=== PATIENT | female | born 2000 | race Caucasian/White ===

== ENCOUNTER 2024-02-21 12:51 | Outpatient (CLI) | payer BC, SELFPAY ==
--- OUTSIDE RECORDS SUMMARY | 2024-02-18 13:25 | XMS_ITS | Continuity of Care Document ---
Author Organization [email or web address] [facility] Address Unknown Encounter 04/27/22 - 04/27/22 [facility] Discharge Disposition: Home Attending Physician: Sherlyn Weinstein Allergies, Adverse Reactions, Alerts Substance Reaction Severity Status amoxicillin hives Active penicillin hives Active Immunizations Given and Recorded Vaccine Date Status Refusal Reason SARS-CoV-2 (COVID-19) mRNA BNT-162b2 vax 03/31/21 Recorded SARS-CoV-2 (COVID-19) mRNA BNT-162b2 vax 07/16/20 Recorded SARS-CoV-2 (COVID-19) mRNA BNT-162b2 vax 06/25/20 Recorded meningococcal conjugate vaccine 05/08/19 Recorded meningococcal conjugate vaccine 04/24/13 Recorded INFLUENZA VIRUS VACCINE 05/08/19 Recorded INFLUENZA VIRUS VACCINE 01/17/14 Recorded INFLUENZA VIRUS VACCINE 01/10/10 Recorded INFLUENZA VIRUS VACCINE 03/15/07 Recorded INFLUENZA VIRUS VACCINE 01/15/05 Recorded INFLUENZA VIRUS VACCINE 01/28/04 Recorded INFLUENZA VIRUS VACCINE 12/31/03 Recorded human papillomavirus vaccine 02/28/15 Recorded human papillomavirus vaccine 08/06/14 Recorded diphtheria/pertussis, acel/tetanus adult 04/24/13 Recorded human papillomavirus vaccine 04/24/13 Recorded influenza virus vaccine, live 12/31/10 Recorded influenza virus vaccine, live 01/27/08 Recorded hepatitis A pediatric vaccine 10/10/10 Recorded hepatitis A pediatric vaccine 01/28/10 Recorded influenza virus vaccine, H1N1, inactivat 03/11/09 Recorded influenza virus vaccine, H1N1, live 01/17/09 Recor ded varicella virus vaccine 11/17/06 Recorded varicella virus vaccine 04/18/02 Recorded poliovirus vaccine, inactivated 01/18/06 Recorded poliovirus vaccine, inactivated 01 Recorded poliovirus vaccine, inactivated 01 Recorded poliovirus vaccine, inactivated 01 Recorded measles/mumps/rubella virus vaccine 01/18/06 Recor ded measles/mumps/rubella virus vaccine 04/18/02 Recor ded diphtheria/pertussis, acel/tetanus ped 01/18/06 Re corded diphtheria/pertussis, acel/tetanus ped 04/18/02 Re corded diphtheria/pertussis, acel/tetanus ped 01 Re corded diphtheria/pertussis, acel/tetanus ped 01 Re corded diphtheria/pertussis, acel/tetanus ped 01 Re corded pneumococcal 7-valent vaccine 10/25/02 Recorded pneumococcal 7-valent vaccine 01 Recorded pneumococcal 7-valent vaccine 01 Recorded pneumococcal 7-valent vaccine 01 Recorded haemophilus b conjugate (PRP-T) vaccine 04/18/02 R ecorded haemophilus b conjugate (PRP-T) vaccine 01 R ecorded haemophilus b conjugate (PRP-T) vaccine 01 R ecorded hepatitis B pediatric vaccine 01/02/02 Recorded hepatitis B pediatric vaccine 01 Recorded hepatitis B pediatric vaccine 01 Recorded haemophilus b conjugate (HbOC) vaccine 01 Re corded Medications Annovera 0.15 mg-0.013 mg/24 hours vaginal ring Refill(s) 0 Start Date: 07/11/21 Status: Ordered Gianvi oral tablet 1 tab, orally, 1 time a day, Refill(s) 0 Start Date: 11/30/19 Status: Ordered Problem List No Known Problems Social History Social History Type Response Smoking Status Never (less than 100 in lifetime);Never; Tobacco Screening/Education Patient was screened for tobacco use and is a nonuser. entered on: 07/11/21 Sex Female Patient Care team information Care Team Personnel Name: Bernice Navarrete D. Position: HAND II THERMAL CUTTER Member Role: Tamraner Support Name: Sebastian Grimaldo MD Position: Physician - Primary Care Member Role: Responsible Provider Address: Address: [address] [place] [address]- Care Team Related Persons Name: MOISES MORGAN
--- OUTSIDE RECORDS SUMMARY | 2024-02-18 13:25 | XMS_ITS | Continuity of Care Document ---
Author Organization [employer] [facility] es Address Unknown Care Team Providers Care Print Journalist Name Role Phone Sherlyn Weinstein Primary Care Physician Encounter 09/07/22 - 09/07/22 [facility] Discharge Disposition: Home Attending Physician: Lynn Farmer Allergies, Adverse Reactions, Alerts Substance Reaction Severity [...] screened for tobacco use and is a nonuser.; Smoking in Household No entered on: 05/25/22 Sex Female Patient Care team information Care Team Personnel Name: Sherlyn Weinstein Position: Physician - Primary Care Member Role: Primary Care Physician Address: Address: [address] [place] [address]- Name: Bernice Navarrete Pharm D. Position: TRIAL MANAGEMENT ASSOCIATE Member Role: Tamraner Support Name: DORYS WU Position: Physician - Urgent Care Member Role: Responsible Provider Address: Address: [address] [place] [address]- Care Team Related Persons Name: MOISES MORGAN
--- OUTSIDE RECORDS SUMMARY | 2024-02-18 13:25 | XMS_ITS | Continuity of Care Document ---
Author Organization [employer] [facility] Address Unknown Care Team Providers Care Supervisor [employer] Name Role Phone Sherlyn Weinstein Primary Care Physician Encounter [facility] Date(s): 10/29/23 - 10/29/23 [employer] [facility] Encounter Diagnosis Acute left-sided back pain(Discharge Diagnosis) - 10/29/23 Cough(Discharge Diagnosis) - 10/29/23 Discharge Disposition: Home Attending Physician: Sherlyn Leos Admitting Physician: Sherlyn Leos Referring Physician: Gee River PA-C Allergies, Adverse Reactions, Alerts Substance Reaction Severity Status amoxicillin hives Active penicillin hives Active Assessment and Plan Extracted from: Title:Urgent Care Note Author:Ursula Leos Date:10/29/23 1. Acute left-sided back pain Ordered: diclofenac, 75 MG = 1 tab, orally, 2 times a day, # 14 tab, Refill(s) 0, with food, Pharmacy: [facility] #[id number], Diagnosis: Acute left-sided back pain, 66.1, 10/29/23 8:49:00 CDT, Weight, kg 2. Cough Patient's physical exam and vital signs are overall very reassuring. PERC criteria are negative making PE very unlikely. We discussed that she likely has a strain or sprain of her back or ribs from the 2 to 3 weeks of coughing that she has been doing. I did offer a chest x-ray to further evaluate for potential lung etiology such as pneumonia, pneumothorax, pleural effusion, etc.. Patient declined at this time which is reasonable as she does not have signs or symptoms consistent with this necessarily. We discussed treating with some anti-inflammatories and she would like to trial stronger NSAIDs rather than prednisone which is reasonable. Can begin diclofenac 75 mg every 12 hours. Take with food avoid GI upset. Avoid other NSAIDs while taking this. Can additionally take Tylenol 1000 mg every 8 hours. Recommended ice, heat, gentle stretching and active range of motion. Can use a massage with a tennis ball. Return for reevaluation if symptoms persist or worsen, or if you develop any new symptoms. Patient is agreeable to the plan and all questions and concerns are addressed prior to discharge. Functional Status 10/29/23 ADLs (func) Independent Disabilities (func) None Immunizations Given and Recorded Vaccine Date Status [...] Refill(s) 0 Start Date: 07/11/21 Status: Ordered diclofenac sodium 75 mg oral enteric coated tablet 75 MG = 1 tab, orally, 2 times a day, # 14 tab, Refill(s) 0, with food, Pharmacy: [facility] #[id number], Diagnosis: Acute left-sided back pain, 66.1, 10/29/23 8:49:00 CDT, Weight, kg Start Date: 10/29/23 Stop Date: 11/05/23 Status: Ordered Gianvi oral tablet 1 tab, orally, 1 time a day, Refill(s) 0 Start Date: 11/30/19 Status: Ordered Misc Medication Refill(s) 0 Start Date: 10/29/23 Status: Ordered Mental Status 10/29/23 Able to Report correct day of the week C orrect Able to Report correct month Accurate wi thin 5 days Able to Report correct year Correct Problem List Condition Confirmation Course Effective Dates Status H ealth Status Informant Nicotine dependence, other tobacco product, uncomplicated Confirmed Active Diagnosis Diagnosis Type Effective Dates Health Status Cl inical Service Informant Acute left-sided back pain Discharge Diagnosis 10/29/23 Non-Specified Cough Discharge Diagnosis 10/29/23 Vital Signs Most recent to oldest [Reference Range]: 1 Blood Pressure [100-139/50-89 mmHg] 113/ 73mmHg (10/29/23 8:49 AM) Respiratory Rate [12-20 br/min] 16 br/mi n (10/29/23 8:49 AM) Temperature Oral [96-100 DegF] 98.3 DegF (10/29/23 8:49 AM) Pulse Rate [55-100 bpm] 65 bpm (10/29/23 8:49 AM) Oxygen Saturation [94-100 %] 99 % (10/29/23 8:49 AM) Weight 66.1 kg (10/29/23 8:49 AM) Do you have these Coronavirus symptoms? Cough (10/29/23 8:49 AM) Social History Social History Type Response Smoking Status Never (less than 100 in lifetime);Never; Tobacco Screening/Education Patient was screened for tobacco use and educated on tobacco entered on: 10/29/23 Sex Female Physician Emergency department Note * Sherlyn Leos PA: PERFORM Event Display: ED/Urgent Care Note Authored Date: [id number] Chief Complaint Cough (2 weeks) and left upper back pain itinally with cough, but now constant. . History of Present Illness -Provider Patient is a 23-year-old female who presents to urgent care today with concerns of posterior back/shoulder pain??for the past few days. ??She states she has had a cough??for??the last 2 to 3 weeks and??had chest congestion with that. ??The cough is continued improve??and??a few days ago she starteddeveloping some pain in her??left??upper back just under her shoulder blade only when coughing??but now feels that the pain is constant. ??Severity worsens when she coughs or takes a deep breath, andwith??movement or position changes. ??Pain is sharp in nature??and is shooting at times. Doesn't feel that she has shortness of breath necessarily but feels like she cannot get a deep breath due to the pain. ??No fevers, chills, palpitations, center chest pain or pressure, hemoptysis, urinary symptoms.?? Denies any recent surgery or immobilization, estrogen hormone use, history??of cancer or blood clots, lower extremity pain or edema. ??She has tried some ibuprofen without much relief. Problem List/Past Medical History Ongoing Nicotine dependence, other tobacco product, uncomplicated Historical No qualifying data Procedure/Surgical History No procedures found. ?? Allergies amoxicillin??(hives) penicillin??(hives) Medications Medications Home Annovera 0.15 mg-0.013 mg/24 hours vaginal ring,?Not taking diclofenac sodium 75 mg oral enteric coated tablet, 75 MG, 1 tab, orally, 2 times a day, with food Gianvi oral tablet, 1 tab, orally, 1 time a day,?Not taking Misc Medication Social History Alcohol None, Alcohol use interferes with work or home: No. Electronic Cigarettes/Vaping E-Cigarette Use: 51+ inhales/day. Type: Nicotine infused. Vaping Education: Patient was educated onharms of vaping today and is not ready for change. E-Cigarette Use: Never. Vaping Education: Patient was screened for vaping use and is a nonuser. Passive Exposure: No. Employment/School Employed, Student, Work/School description: [employer], work's for [employer]. Highest education level: Some college. Exercise Home/Environment Lives with 1 room mate. Single Nutrition/Health Regular, Caffeine intake amount: 3 cups coffee daily. Sexual Sexually active: No. Number of lifetime partners 2. What is your current gender identity? (Check all that apply) Identifies as female. Substance Use/Abuse None Tobacco Never (less than 100 in lifetime) Tobacco Use (Smoking):. Smokeless Tobacco Use: Never. Tobacco Screening/Education Patient was screened for tobacco use and educated on tobacco cessation today and isnot ready for change.. Never (less than 100 in lifetime) Tobacco Use (Smoking):. Smokeless Tobacco Use: Never. Tobacco Screening/Education Patient was screened for tobacco use and is a nonuser.. Household tobacco concerns:No. Family History Hypertrophic cardiomyopathy: Father. Review of Systems Negative except HPI Physical Exams Vitals & Measurements Vital Signs and Measurements VITAL SIGNS: Systolic Blood Pressure: 113 mmHg Diastolic Blood Pressure: 73 mmHg Pulse Rate: 65 bpm Respiratory Rate: 16 br/min Temperature Oral: 98.3 DegF Oxygen Saturation: 99 % MEASUREMENTS: Weight: 66.1 kg General: Well appearing, 23-year-old female in no acute distress?? Head: Normocephalic, atraumatic. Neck: Supple. ??Absent cervical lymphadenopathy.?Full range of motion without pain. Eyes: Conjunctiva clear. No discharge. Mouth/Throat: Oral mucosa moist. No pharyngeal erythema or exudates. No tonsillar hypertrophy. Uvula midline. Respiratory: Chest expansion symmetric. Respirations are easy and unlabored. Lungs are clear to auscultation bilaterally. No wheezes, rales or rhonchi. Cardiovascular: Regular rate and rhythm.?? MSK:??No tenderness to palpation over left??upper middle back.?? Feels that it is deeper. Skin: No visible rashes. Warm and dry. Labs 1 day Lab results for today?? No qualifying data available. Diagnostics Radiology orders for today?? No qualifying data available. ?? Radiology Results Current Encounter?? No qualifying data available. Assessment/Plan 1.??Acute left-sided back pain Ordered: diclofenac, 75 MG = 1 tab, orally, 2 times a day, # 14 tab, Refill(s) 0, with food, Pharmacy: [facility] #[id number], Diagnosis: Acute left-sided back pain, 66.1, 10/29/23 8:49:00 CDT, Weight, kg ?? 2.??Cough ?? Patient's physical exam and vital signs are overall very reassuring.?PERC criteria are negative making PE very unlikely.?? We??discussed that she likely has a??strain or sprain of her??back??or ribs??from the 2 to 3 weeks of coughing that she has been doing.?? I did offer a chest x-ray to further evaluate for potential??lung etiology such as pneumonia, pneumothorax, pleural effusion, etc.. ??Patient declined at this time which is reasonable as she does not have signs or symptoms consistent with this necessarily.?? We discussed treating with some anti-inflammatories and she would like to trial??stronger NSAIDs rather than prednisone which is reasonable.?? Can begin diclofenac 75 mg every 12 hours. ??Take with food avoid GI upset. ??Avoid other NSAIDs while taking this.?? Can additionally take Tylenol 1000 mg every 8 hours.?? Recommended ice, heat, gentle stretching and active range ofmotion. ??Can use a massage with a tennis ball. ?? Return for reevaluation if symptoms persist or worsen, or if you develop any new symptoms. ??Patient is agreeable to the plan and all questions and concerns are addressed prior to discharge. Follow Up As needed. ?? Note: Portions of the record and this note have been created with [employer] voice recognition software. Occasionally wrong-word or [id number] substitutions may have occurred due to the inherent limitation of voice recognition software. The text is reviewed by myself, the physician events and promotions assistant, priorto signing, but occasionally errors may still occur and should be interpreted within the context ofa physician events and promotions assistant encounter by a nurse practitioner/physician events and promotions assistant/physician. Patient Care team information Care Team Personnel Name: Gee River PA-C Position: Physician - Urgent Care Member Role: Responsible Provider Address: Address: [address] Name: Sherlyn Weinstein Position: Physician - Primary Care Member Role: Primary Care Physician Address: Address: [address] Name: Bernice Navarrete D. Position: HUMAN PERFORMANCE PROFESSOR Member Role: Cerner Support Name: Sherlyn Leos Position: Physician - Urgent Care Member Role: Attending Physician Address: Address: [address] Name: Peg Mcclure Position: UC Nursing Member Role: RN Care Team Related Persons Name: MOISES MORGAN Address: home [id number] [place] [phone]
--- OUTSIDE RECORDS SUMMARY | 2024-02-18 13:25 | XMS_ITS | Continuity of Care Document ---
Author Organization [employer] [facility] es Address Unknown Encounter 06/13/21 - 06/13/21 General Blood [facility] Encounter Diagnosis Encounter for screening laboratory testing for COVID-19 virus(Discharge Diagnosis) - 06/13/21 Discharge Disposition: Home Attending Physician: Karen Hart NP Admitting Physician: Karen Hart NP Referring Physician: Karen Hart NP Allergies, Adverse Reactions, Alerts Substance Reaction Severity Status amoxicillin hives Active penicillin hives Active Immunizations Given and Recorded Vaccine Date Status Refusal Reason meningococcal conjugate vaccine 05/08/19 Recorded meningococcal conjugate [...] conjugate (HbOC) vaccine 01 Re corded Medications Gianvi oral tablet 1 tab, orally, 1 time a day, Refill(s) 0 Start Date: 11/30/19 Status: Ordered Problem List No Chronic Problems Diagnosis Diagnosis Type Effective Dates Health Status Clinical Service Informant Encounter for screening laboratory testing for COVID-19 virus Discharge Diagnosis 06/13/21 Non-Specified Results Laboratory List Name Date COVID PCR WH 06/13/21 Most recent to oldest [Reference Range]: 1 First Test No *NA* (06/13/21 11:06 AM) Employed in healthcare No *NA* (06/13/21 11:06 AM) Symptomatic as defined by CDC Yes *NA* (06/13/21 11:06 AM) Hospitalized No *NA* (06/13/21 11:06 AM) ICU No *NA* (06/13/21 11:06 AM) Resides in congregate care setting Yes *NA* (06/13/21 11:06 AM) ? Not *NA* (06/13/21 11:06 AM) Patient Race White *NA* (06/13/21 11:06 AM) Patient Ethnicity Not *NA* (06/13/21 11:06 AM) SARCoV2 COVID POSITIVE *ABN* (06/13/21 11:06 AM) SARCoV2 IC Valid (06/13/21 11:06 AM) SARCov2 interp SARS-CoV-2 Detected *NA* (06/13/21 11:06 AM) Specimen type COVID Nasal *NA* (06/13/21 11:06 AM) Social History Social History Type Response Smoking Status Never (less than 100 in lifetime); Smoking in Household No; Interest in Smoking Cessation Class No; Pt received Fernie Smoking Cessation [employer] No entered on: 12/08/19 Sex Female
--- OUTSIDE RECORDS SUMMARY | 2024-02-18 13:25 | XMS_ITS | Continuity of Care Document ---
Author Organization [employer] [facility] Address [address] [place] [address] Encounter 05/21/20 - 05/21/20 [facility] [address] [place], [place] [address] [id number] Encounter Diagnosis Conjunctivitis, right eye(Discharge Diagnosis) - 05/21/20 Discharge Disposition: Home Attending Physician: Jennifer Rodriguez Admitting Physician: Jennifer Rodriguez Referring Physician: Jennifer Rodriguez Allergies, Adverse Reactions, Alerts Substance Reaction Severity Status amoxicillin hives Active penicillin hives Active Assessment and Plan Extracted from: Title:Clinic Visit Author:Jennifer Rodriguez Date:05/21/20 1. Conjunctivitis, right eye Due to the patient's lack of viral symptoms elsewhere I will treat her for bacterial conjunctivitis at this time. She was recommended to apply warm compresses several times a day. She was given polymyxin t rimethoprim drops, 1 drop to the right eye every 3 hours for 7 days. If she develops any vision changes she should be evaluated by ophthalmology. Orders: polymyxin B-trimethoprim ophthalmic, 1 Drops, eye(s)-affected, every 3 hours, X 7 Days, # 10 ML, Refill(s) 0, Soln, Pharmacy: [facility] [id number] [facility], 05/21/20 8:48:00 CDT, Height, cm, 60.4, 05/21/20 8:48:00 CDT, Weight, kg, 163 Functional Status 05/21/20 ADLs (func) Independent Disabilities (func) None Immunizations Given and Recorded Vaccine Date Status Refusal Reason INFLUENZA VIRUS VACCINE 05/08/19 Recorded INFLUENZA VIRUS VACCINE 01/17/14 Recorded INFLUENZA VIRUS VACCINE 01/10/10 Recorded INFLUENZA VIRUS VACCINE 03/15/07 Recorded INFLUENZA VIRUS VACCINE 01/15/05 Recorded INFLUENZA VIRUS VACCINE 01/28/04 Recorded INFLUENZA VIRUS VACCINE 12/31/03 Recorded meningococcal conjugate vaccine 05/08/19 Recorded meningococcal conjugate vaccine 04/24/13 Recorded human papillomavirus vaccine 02/28/15 Recorded human papillomavirus vaccine 08/06/14 Recorded human papillomavirus vaccine 04/24/13 Recorded diphtheria/pertussis, acel/tetanus adult 04/24/13 Recorded influenza virus vaccine, live 12/31/10 [...] conjugate (HbOC) vaccine 01 Re corded Medications polymyxin B-trimethoprim ophthalmic 76938 u-1 mg/ml solution 1 Drops, eye(s)-affected, every 3 hours, X 7 Days, # 10 ML, Refill(s) 0, Maribel, Pharmacy: [facility] [id number] [facility], 05/21/20 8:48:00 CDT, Height, cm, 60.4, 05/21/20 8:48:00 CDT, Weight, kg, 163 Start Date: 05/21/20 Stop Date: 05/28/20 Status: Ordered Mental Status 05/21/20 Able to Report correct day of the week C orrect Able to Report correct month Accurate wi thin 5 days Able to Report correct year Correct Problem List No Known Problems Vital Signs Most recent to oldest [Reference Range]: 1 Blood Pressure [100-150/50-95 mmHg] 134/ 73mmHg (05/21/20 8:48 AM) BP Site Right upper arm (05/21/20 8:48 AM) BP Cuff Size Regular cuff (05/21/20 8:48 AM) Temperature Oral [96-100 DegF] 98.7 DegF (05/21/20 8:48 AM) Pulse Rate [55-100 bpm] 66 bpm (05/21/20 8:48 AM) Pulse Site Brachial (05/21/20 8:48 AM) Oxygen Saturation [94-100 %] 98 % (05/21/20 8:48 AM) Height 163 cm (05/21/20 8:48 AM) Weight 60.4 kg (05/21/20 8:48 AM) Do you have these Coronavirus symptoms? None (05/21/20 8:48 AM) Close contact w lab confirm Coronavirus No (05/21/20 8:48 AM) Have you traveled to Coronavirus area No (05/21/20 8:48 AM) Social History Social History Type Response Smoking Status Never (less than 100 in lifetime); Smoking in Household No; Interest in Smoking Cessation Class No; Pt received Fernie Smoking Cessation [facility] Ed No entered on: 12/08/19 Sex Female
--- OUTSIDE RECORDS SUMMARY | 2024-02-18 13:25 | XMS_ITS | Continuity of Care Document ---
Author Organization [facility] es Address Unknown Care Team Providers Care Director Alumni Relations Name Role Phone Sherlyn Weinstein Primary Care Physician Encounter 05/25/22 - 05/25/22 [facility] Discharge Disposition: Home Attending Physician: DORYS WU Admitting Physician: DORYS WU Referring Physician: DORYS WU Allergies, Adverse Reactions, Alerts Substance Reaction Severity Status amoxicillin hives Active penicillin hives Active Functional Status 05/25/22 ADLs (func) Independent Disabilities (func) None Immunizations [...] Refill(s) 0 Start Date: 11/30/19 Status: Ordered Mental Status 05/25/22 Able to Report correct day of the week C orrect Able to Report correct month Accurate wi thin 5 days Able to Report correct year Correct Problem List No Chronic Problems Diagnosis Diagnosis Type Effective Dates Health Status Cl inical Service Informant Pain in throat Billing Diagnosis 05/25/22 Non-Specified Results Laboratory List Name Date Strep A Detection Nucleic Acid PCR (Stre p A PCR) 05/25/22 Most recent to oldest [Reference Range]: 1 Strep A PCR [Strep A Not Detected] Strep A Not Detected (05/25/22 10:02 AM) Vital Signs Most recent to oldest [Reference Range]: 1 Blood Pressure [100-150/50-95 mmHg] 120/ 76mmHg (05/25/22 9:53 AM) Respiratory Rate [12-20 br/min] 16 br/mi n (05/25/22 9:53 AM) Temperature Oral [96-100 DegF] 98.3 DegF (05/25/22 9:53 AM) Pulse Rate [55-100 bpm] 68 bpm (05/25/22 9:53 AM) Oxygen Saturation [94-100 %] 98 % (05/25/22 9:53 AM) Do you have these Coronavirus symptoms? Sore throat (05/25/22 9:53 AM) Where have you traveled? No (05/25/22 9:53 AM) Social History Social History Type Response Smoking Status Never (less than 100 in lifetime);Never; Tobacco Screening/Education Patient was screened for tobacco use and is a nonuser.; Smoking in Household No entered on: 05/25/22 Sex Female Patient Care team information Care Team Personnel Name: Sherlyn Weinstein Position: Physician - Primary Care Member Role: Primary Care Physician Address: Address: [address] [place] [address]- Name: Bernice Navarrete Pharm D. Position: REPRODUCTION ORDER PROCESSOR Member Role: Tamraner Support Name: DORYS WU Position: Physician - Urgent Care Member Role: Responsible Provider Address: Address: [address] [place] [address]- Name: Elsie Epps RN Urgent Care Position: UC Nursing Member Role: RN Care Team Related Persons Name: MOISES MORGAN
--- OUTSIDE RECORDS SUMMARY | 2024-02-18 13:25 | XMS_ITS | Continuity of Care Document ---
Author Organization [employer] Address [address] [place] [address] Encounter 02/06/20 - 02/06/20 [facility] [employer] [facility] [address] [place] [address] Discharge Disposition: Home Attending Physician: Marisa Barrett NP Admitting Physician: Marisa Barrett NP Referring Physician: Marisa Barrett NP Allergies, Adverse Reactions, Alerts Substance Reaction Severity Status amoxicillin hives Active penicillin hives Active Problem List No Known Problems Results Laboratory List Name Date SARS Coronavirus 2 RNA Detection, V (COV ID PCR MML) 02/06/20 Most recent to oldest [Reference Range]: 1 First Test No (02/06/20 12:42 PM) Employed in healthcare No (02/06/20 12:42 PM) Symptomatic as defined by CDC No (02/06/20 12:42 PM) Hospitalized No (02/06/20 12:42 PM) ICU No (02/06/20 12:42 PM) Resides in congregate care setting No (02/06/20 12:42 PM) ? Not (02/06/20 12:42 PM) Patient Race Unknown (02/06/20 12:42 PM) Patient Ethnicity Unknown (02/06/20 12:42 PM) Social History Social History Type Response Smoking Status Never (less than 100 in lifetime); Smoking in Household No; Interest in Smoking Cessation Class No; Pt received Fernie Smoking Cessation [facility] Ed No entered on: 12/08/19 Sex Female
--- OUTSIDE RECORDS SUMMARY | 2024-02-18 13:25 | XMS_ITS | Continuity of Care Document ---
Author Organization [facility] Address [address] [address] En[facility] 11/30/19 - [facility] [address] [place] [address] Encounter Diagnosis Acute sore throat(Discharge Diagnosis) - 11/30/19 Discharge Disposition: Home Attending Physician: Antonio Cotton MD Admitting Physician: Antonio Cotton MD Referring Physician: Antonio Cotton MD Allergies, Adverse Reactions, Alerts Substance Reaction Severity Status amoxicillin hives Active penicillin hives Active Functional Status 11/30/19 ADLs (func) Independent Disabilities (func) None Medications Gianvi oral tablet 1 tab, orally, 1 time a day, Refill(s) 0 Start Date: 11/30/19 Status: Ordered Mental Status 11/30/19 Able to Report correct day of the week C orrect Able to Report correct month Accurate wi thin 5 days Able to Report correct year Correct Results Laboratory List Name Date Strep A Detection Nucleic Acid PCR (Stre p A PCR) 11/30/19 Most recent to oldest [Reference Range]: 1 Strep A PCR [Strep A Not Detected] Strep A Not Detected (11/30/19 2:02 PM) Vital Signs Most recent to oldest [Reference Range]: 1 Blood Pressure [100-150/50-95 mmHg] 131/ 74mmHg (11/30/19 1:54 PM) Respiratory Rate [12-20 br/min] 15 br/mi n (11/30/19 1:54 PM) Temperature Oral [96-100 DegF] 99.0 DegF (11/30/19 1:54 PM) Pulse Rate [55-100 bpm] 81 bpm (11/30/19 1:54 PM) Oxygen Saturation [94-100 %] 99 % (11/30/19 1:54 PM) Height 159 cm (11/30/19 1:54 PM) Weight 59 kg (11/30/19 1:54 PM) Do you have these Coronavirus symptoms? Sore throat (11/30/19 1:54 PM) Close contact w lab confirm Coronavirus No (11/30/19 1:54 PM) Have you traveled to Coronavirus area No (11/30/19 1:54 PM) Social History Social History Type Response Smoking Status Never (less than 100 in lifetime); Smoking in Household No; Interest in Smoking Cessation Class No; Pt received Fernie Smoking Cessation [facility] No entered on: 11/30/19 Sex Female
--- OUTSIDE RECORDS SUMMARY | 2024-02-18 13:25 | XMS_ITS | Continuity of Care Document ---
Author Organization [facility] Address [address] [place] [phone] Encounter 05/03/20 - 05/03/20 [facility] [address] [place] [phone] Encounter Diagnosis Acute lower urinary tract infection(Discharge Diagnosis) - 05/03/20 Discharge Disposition: Home Attending Physician: Jie Dent DO Admitting Physician: Jie Dent DO Referring Physician: Jie Dent DO Allergies, Adverse Reactions, Alerts Substance Reaction Severity Status amoxicillin hives Active penicillin hives Active Assessment and Plan Extracted from: Title:Clinic Visit Author:Jie Dent Date:05/03/20 Acute lower urinary tract infection Unfortunately urinalysis was affected by the Azo. We will treat the patient empirically with nitrofurantoin twice daily for 5 days, patient is to take this with food. She was counseled that this can interfere with control and so if she is sexually active she should be taking an alternative form of control during the time that she is on the antibiotic. If her symptoms do not resolve with this antibiotic, suggest that she return for a new sample of urine so we can do a urine culture. Recommended plenty of fluid hydration, recommended rest, ibuprofen or Tylenol as needed for pain. Ordered: nitrofurantoin, 100 MG = 1 CAP, orally, 2 times a day, X 5 Days, # 10 CAP, Refill(s) 0, with food, Pharmacy: [facility] [id number] [facility] [place], Diagnosis: Acute lower urinary tract infection, 163, 05/03/20 11:01:00 [employer], Height, cm, 60.9, 05/03/20 11:01:00 [employer], Weight, kg Functional Status 05/03/20 ADLs (func) Independent Disabilities (func) None Immunizations [...] conjugate (HbOC) vaccine 01 Re corded Medications Macrobid macrocrystals-monohydrate 100 mg oral capsule 100 MG = 1 CAP, orally, 2 times a day, X 5 Days, # 10 CAP, Refill(s) 0, with food, Pharmacy: [facility] [id number] [address] [employer], Diagnosis: Acute lower urinary tract infection, 163, 05/03/20 11:01:00 [employer], Height, cm, 60.9, 05/03/20 11:01:00 [employer], Weight, kg Start Date: 05/03/20 Stop Date: 05/08/20 Status: Ordered Mental Status 05/03/20 Able to Report correct day of the week C orrect Able to Report correct month Accurate wi thin 5 days Able to Report correct year Correct Problem List No Known Problems Results Laboratory List Name Date Urinalysis/Culture Reflex iQ (UA/Cult Rf x iQ) 05/03/20 Most recent to oldest [Reference Range]: 1 iQ Color [Light-[place]] [place] *ABN* (05/03/20 10:45 AM) iQ Bilirubin SEE COMMENT 1 *NA* (05/03/20 10:45 AM) iQ Bacteria [2+] Occasional (05/03/20 10:45 AM) iQ Culture Criteria? Not Met (05/03/20 10:45 AM) iQ Mucous [Prominent /LPF] Prominent /LP F (05/03/20 10:45 AM) iQ Leukocytes SEE COMMENT 2 *NA* (05/03/20 10:45 AM) iQ Clarity [Clear] Turbid *ABN* (05/03/20 10:45 AM) iQ Specific [place] [1.005 - 1.030] >1.0 30 *ABN* (05/03/20 10:45 AM) iQ Ketones SEE COMMENT 3 *NA* (05/03/20 10:45 AM) iQ Glucose SEE COMMENT 4 *NA* (05/03/20 10:45 AM) iQ Urobilinogen [Normal] 3 *ABN* (05/03/20 10:45 AM) iQ RBC [0 - 2] >100 *ABN* (05/03/20 10:45 AM) iQ Protein SEE COMMENT 5 *NA* (05/03/20 10:45 AM) iQ Blood SEE COMMENT 6 *NA* (05/03/20 10:45 AM) iQ Nitrite SEE COMMENT 7 *NA* (05/03/20 10:45 AM) iQ WBC [0 - 2] >100 *ABN* (05/03/20 10:45 AM) iQ WBC Clumps [None Seen] Present (05/03/20 10:45 AM) iQ SQ Epithelial [0 - 5] >10 8 *ABN* (05/03/20 10:45 AM) iQ pH [5.0-8.0] SEE COMMENT 9 *NA* (05/03/20 10:45 AM) Specimen Type Ur Clean Catch (05/03/20 10:45 AM) 1Result Comment: 'Highly colored urine unable to test.' 2Result Comment: 'Highly colored urine unable to test.' 3Result Comment: 'Highly colored urine unable to test.' 4Result Comment: 'Highly colored urine unable to test.' 5Result Comment: 'Highly colored urine unable to test.' 6Result Comment: 'Highly colored urine unable to test.' 7Result Comment: 'Highly colored urine unable to test.' 8Result Comment: Presence of Moderate to Many Squamous Epithelial cells suggests contamination. No reflex culture performed. Recollect urine sample by clean catch midstream or catheterization method, if culture is needed. 9Result Comment: 'Highly colored urine unable to test.' Vital Signs Most recent to oldest [Reference Range]: 1 Blood Pressure [100-150/50-95 mmHg] 132/ 89mmHg (05/03/20 11:01 AM) BP Site Right upper arm (05/03/20 11:01 AM) BP Cuff Size Regular cuff (05/03/20 11:01 AM) Temperature Tympanic [96-99 DegF] 98.7 D egF (05/03/20 11:01 AM) Pulse Rate [55-100 bpm] 79 bpm (05/03/20 11:01 AM) Height 163 cm (05/03/20 11:01 AM) Weight 60.9 kg (05/03/20 11:01 AM) Do you have these Coronavirus symptoms? None (05/03/20 11:01 AM) Close contact w lab confirm Coronavirus No (05/03/20 11:01 AM) Have you traveled to Coronavirus area No (05/03/20 11:01 AM) Social History Social History Type Response Smoking Status Never (less than 100 in lifetime); Smoking in Household No; Interest in Smoking Cessation Class No; Pt received Fernie Smoking Cessation [facility] Ed No entered on: 12/08/19 Sex Female
--- OUTSIDE RECORDS SUMMARY | 2024-02-18 13:25 | XMS_ITS | Continuity of Care Document ---
Author Organization [employer] [facility] es Address [address] [place] [address] Encounter 02/11/21 - 02/11/21 [facility] [address] [address] Discharge Disposition: Home Attending Physician: Marisa Barrett [...] Dates Health Status Cl inical Service Informant Contact with and (suspected) exposure to COVID-19 02/11/21 Non-Specified Results Laboratory List Name Date COVID PCR WH 02/11/21 Most recent to oldest [Reference Range]: 1 First Test No *NA* (02/11/21 11:44 AM) Employed in healthcare No *NA* (02/11/21 11:44 AM) Symptomatic as defined by CDC Yes *NA* (02/11/21 11:44 AM) Date of onset 11-FEB-2021 *NA* (02/11/21 11:44 AM) Hospitalized No *NA* (02/11/21 11:44 AM) ICU No *NA* (02/11/21 11:44 AM) Resides in congregate care setting No *NA* (02/11/21 11:44 AM) ? Not *NA* (02/11/21 11:44 AM) Patient Race White *NA* (02/11/21 11:44 AM) Patient Ethnicity Not *NA* (02/11/21 11:44 AM) SARCoV2 COVID Negative (02/11/21 11:44 AM) SARCoV2 IC Valid (02/11/21 11:44 AM) SARCov2 interp SARS-CoV-2 not detec oleg. (02/11/21 11:44 AM) Specimen type COVID Nasal *NA* (02/11/21 11:44 AM) Social History Social History Type Response Smoking Status Never (less than 100 in lifetime); Smoking in Household No; Interest in Smoking Cessation Class No; Pt received Fernie Smoking Cessation [facility] Ed No entered on: 12/08/19 Sex Female
--- OUTSIDE RECORDS SUMMARY | 2024-02-18 13:25 | XMS_ITS | Continuity of Care Document ---
Author Organization [facility] es Address Unknown Care Team Providers Care Steam Blocker Name Role Phone Sherlyn Weinstein Primary Care Physician Encounter 05/07/22 - 05/07/22 [facility] Discharge Disposition: Home Attending Physician: Iona Alvarez NP Admitting Physician: Iona Alvarez NP Referring Physician: Iona Alvarez NP Allergies, Adverse Reactions, Alerts Substance Reaction Severity Status amoxicillin hives Active penicillin hives Active Assessment and Plan Extracted from: Title:Results Callback Author:Wilton Benoit D Date:05/07/22 Chlamydia trachomatis - - Neg Chlamydia DNA 05/07/2022 12:58 Neisseria gonorrhoeae - - Neg GC DNA 05/07/2022 12:58 05/07/2022 17:17 (Wilton Benoit Pharm D) No further action required CT and NG were negative Extracted from: Title:Urgent Care Note Author:Iona Alvarez NP D ate:05/07/22 Dysuria -UA showed some findings that could be consistent with a urinary tract infection to include leukocyte esterase, blood, and turbid appearance. Unfortunately, her urine sample was too small to be able to send for a culture. She said that she was doing well during the Macrobid and for a few days afterward; however, same symptoms came back about 1 to 2 days ago. I will choose a more broad-spectrum antibiotic for treatment. Cipro 250mg every 12 hours x 3 days. No signs or symptoms of pyelonephritis. -Given her symptoms, we also opted to do also do a urine test for chlamydia/gonorrhea. These results are pending at the time of discharge. Ordered: Chlamydia/gonorrhoeae PCR Orders: ciprofloxacin, 250 MG = 1 tab, orally, every 12 hours, X 3 Days, # 6 tab, Refill(s) 0, Pharmacy: [facility] [id number] [address], 163, 05/21/20 8:48:00 CDT, Height, cm, 64.3, 07/11/21 11:19:00 CDT, Weight, kg Functional Status 05/07/22 ADLs (func) Independent Disabilities (func) None Immunizations [...] Refill(s) 0 Start Date: 07/11/21 Status: Ordered ciprofloxacin 250 mg oral tablet 250 MG = 1 tab, orally, every 12 hours, X 3 Days, # 6 tab, Refill(s) 0, Pharmacy: [facility] [id number] [address] [employer], 163, 05/21/20 8:48:00 CDT, Height, cm, 64.3, 07/11/21 11:19:00 CDT, Weight, kg Start Date: 05/07/22 Stop Date: 05/10/22 Status: Ordered Gianvi oral tablet 1 tab, orally, 1 time a day, Refill(s) 0 Start Date: 11/30/19 Status: Ordered Mental Status 05/07/22 Able to Report correct day of the week C orrect Able to Report correct month Accurate wi thin 5 days Able to Report correct year Correct Problem List No Chronic Problems Diagnosis Diagnosis Type Effective Dates Health Status Clini jabier Service Informant Dysuria Billing Diagnosis 05/07/22 Non-Specifie d Results Laboratory List Name Date Chlamydia/gonorrhoeae PCR 05/07/22 Routine Urinalysis/Microscope Reflex iQ (UA/Routine iQ) 05/07/22 Most recent to oldest [Reference Range]: 1 iQ Color [Light-[place]] Light-[place] (05/07/22 10:38 AM) iQ Bilirubin [<1+] Negative (05/07/22 10:38 AM) iQ Leukocytes [0-25 Beth/uL] 500 Beth/uL *NA* (05/07/22 10:38 AM) iQ Clarity Ex.Turbid *NA* (05/07/22 10:38 AM) iQ Specific [place] [1.005 - 1.030] 1.02 3 (05/07/22 10:38 AM) iQ Ketones [<1+] Negative (05/07/22 10:38 AM) iQ Glucose [<70 mg/dL] Normal (05/07/22 10:38 AM) iQ Urobilinogen [Normal] Normal (05/07/22 10:38 AM) iQ Volume rec'd [>=10 mL] SEE COMMENT 1 *NA* (05/07/22 10:38 AM) iQ Protein [<30 mg/dL] 100 mg/dL *ABN* (05/07/22 10:38 AM) iQ Blood [<1+] 3+ *ABN* (05/07/22 10:38 AM) iQ Nitrite [<1+] Negative (05/07/22 10:38 AM) iQ Comment Less then 10cc of ur ine received. Quantity not sufficient for microscopic exam or culture. *NA* (05/07/22 10:38 AM) iQ pH 8.0 *NA* (05/07/22 10:38 AM) Specimen Type Ur Clean Catch (05/07/22 10:38 AM) Neisseria gonorrhoeae [Neg GC DNA] Neg G C DNA (05/07/22 10:38 AM) Chlamydia trachomatis [Neg Chlamydia DNA ] Neg Chlamydia DNA (05/07/22 10:38 AM) 1Result Comment: Less then 10cc of urine received. Quantity not sufficient for microscopic exam or culture. Vital Signs Most recent to oldest [Reference Range]: 1 Blood Pressure [100-150/50-95 mmHg] 121/ 78mmHg (05/07/22 10:26 AM) Respiratory Rate [12-20 br/min] 16 br/mi n (05/07/22 10:26 AM) Temperature Oral [96-100 DegF] 97.7 DegF (05/07/22 10:26 AM) Pulse Rate [55-100 bpm] 66 bpm (05/07/22 10:26 AM) Oxygen Saturation [94-100 %] 100 % (05/07/22 10:26 AM) Do you have these Coronavirus symptoms? Chills (05/07/22 10:26 AM) Social History Social History Type Response Smoking Status Never (less than 100 in lifetime);Never; Tobacco Screening/Education Patient was screened for tobacco use and is a nonuser. entered on: 05/07/22 Sex Female Physician Emergency department Note * Iona Alvarez CLOTH CHECKER: MODIFY, MODIFY, MODIFY, MODIFY, MODIFY, PERFORM, MODIFY, MODIFY Event Display: ED/Urgent Care Note Authored Date: Chief Complaint Started Symtoms 04/24 of pain with urination and frequency. Plus lower abd pain without urinating. 04/27- Smart Exam - Rx ABX. Better for awhile Ended ABX last last night started with burning w urination, frequent & having lower abd pain.Sexual History of Present Illness -Provider Completed a 5 day course of Macrobid after a virtual urgent care visit on 04/27. ??Her primary symptoms include??increased urinary urgency, frequency,??mild suprapubic tenderness, and??dysuria.?? She denies any flank??or back pain. ??No fevers.?? She did have some blood with urination, but that was the only time she noticed it.?? She??completed a 5-day course of Macrobid??last Wednesday and was doingwell; however, the same symptoms came back??about??1 to 2 days ago. Problem List/Past Medical History Ongoing No chronic problems Historical No qualifying data Procedure/Surgical History No procedures found. ?? Allergies amoxicillin??(hives) penicillin??(hives) Medications Medications Home Annovera 0.15 mg-0.013 mg/24 hours vaginal ring Gianvi oral tablet, 1 tab, orally, 1 time a day,?Not taking Social History Alcohol None, Alcohol use interferes with work or home: No. Electronic Cigarettes/Vaping E-Cigarette Use: Never. Vaping Education: Patient was screened for vaping use and is a nonuser. E-Cigarette Use: Never. Vaping Education: Patient was screened for vaping use and is a nonuser. Employment/School Employed, Student, Work/School description: [employer], work's for [employer]. Highest education level: Some college. Exercise Home/Environment Lives with 1 room mate. Single Nutrition/Health Regular, Caffeine intake amount: 3 cups coffee daily. Sexual Sexually active: No. Number of lifetime partners 2. What is your current gender identity? (Check all that apply) Identifies as female. Substance Abuse None Tobacco Never (less than 100 in lifetime) Tobacco Use (Smoking):. Smokeless Tobacco Use: Never. Tobacco Screening/Education Patient was screened for tobacco use and is a nonuser.. Never (less than 100 in lifetime) Tobacco Use (Smoking):. Smokeless Tobacco Use: Never. Tobacco Screening/Education Patient was screened for tobacco use and is a nonuser.. Family History Hypertrophic cardiomyopathy: Father. Review of Systems See HPI, otherwise a 14 point review of systems negative Physical Exams Vitals & Measurements Vital Signs and Measurements VITAL SIGNS: Systolic Blood Pressure: 121 mmHg Diastolic Blood Pressure: 78 mmHg Pulse Rate: 66 bpm Respiratory Rate: 16 br/min Temperature Oral: 97.7 DegF Oxygen Saturation: 100 % ?? General: Pleasant, well developed and well nourished female patient. No signs of acute distress.?? Neuro: Alert, oriented x3. Speech clear. Follows commands. Psych: Interactive, attentive with appropriate judgement and insight / calm and cooperative. Normalappearing mood and affect.?? Head: Normocephalic. No signs / evidence of trauma. Eyes: Conjunctiva clear, sclera white. EOMs intact.?? Abdomen: Soft, non-tender and non-distended. Bowel sounds active. Musculoskeletal: No tenderness or deformity. Strength equal bilaterally.?? Extremities: Warm and well perfused. Pulses intact with normal cap refill. No cyanosis or edema. Skin: Warm, dry and intact. No redness, rashes or bruising.?? Labs 1 day Lab results for today Specimen Type: Urine, Clean Catch (05/07/22 10:38:00) iQ Volume rec'd: SEE COMMENT (05/07/22 10:38:00) iQ Color: Light-[place] (05/07/22 10:38:00) iQ Clarity: Ex.Turbid (05/07/22 10:38:00) iQ Glucose: Normal (05/07/22 10:38:00) iQ Bilirubin: Negative (05/07/22 10:38:00) iQ Ketones: Negative (05/07/22 10:38:00) iQ Specific [place]: 1.023 (05/07/22 10:38:00) iQ pH: 8 (05/07/22 10:38:00) iQ Protein: 100 mg/dL Abnormal (05/07/22 10:38:00) iQ Urobilinogen: Normal (05/07/22 10:38:00) iQ Nitrite: Negative (05/07/22 10:38:00) iQ Leukocytes: 500 (05/07/22 10:38:00) iQ Blood: 3+ Abnormal (05/07/22 10:38:00) iQ Comment: iQ Comment (05/07/22 10:38:00) Diagnostics Radiology orders for today?? No qualifying data available. ?? Radiology Results Current Encounter?? No qualifying data available. Assessment/Plan Dysuria -UA showed some findings that could be consistent with a urinary tract infection to include??leukocyte??esterase,??blood,??and??turbid appearance. ??Unfortunately, her urine sample was too small to be able to send for a culture.?? She said that she??was doing well??during the Macrobid and for a few days afterward; however, same symptoms came back about 1 to 2 days ago.?? I will choose??a more broad-spectrum antibiotic??for treatment.?? Cipro??250mg every 12 hours x 3 days. ??No signs or symptoms of??pyelonephritis. -Given her??symptoms, we also opted to do also do a urine test for??chlamydia/gonorrhea.?? These results are pending at the time of discharge. Ordered: Chlamydia/gonorrhoeae PCR ?? Orders: ciprofloxacin, 250 MG = 1 tab, orally, every 12 hours, X 3 Days, # 6 tab, Refill(s) 0, Pharmacy: [facility] [id number] [address] [employer], 163, 05/21/20 8:48:00 CDT, Height, cm, 64.3, 07/11/21 11:19:00 CDT, Weight, kg Patient Care team information Care Team Personnel Name: Sherlyn Weinstein Position: Physician - Primary Care Member Role: Primary Care Physician Address: Address: [address] [place] [address]- Name: Bernice Navarrete D. Position: FINISHER DENTURE Member Role: Cerner Support Name: Iona Alvarez CLOTH CHECKER Position: Physician - Primary Care Member Role: Responsible Provider Address: Address: [address] [place] [address]- Name: Peg Mcclure Position: UC Nursing Member Role: UC RN Name: Iona Alvarez CLOTH CHECKER Position: Physician - Primary Care Member Role: Referring Physician Address: Address: [address] [place] [address]- Care Team Related Persons Name: MOISES MORGAN
--- OUTSIDE RECORDS SUMMARY | 2024-02-18 13:25 | XMS_ITS | Continuity of Care Document ---
Author Organization [facility] Address Unknown Encounter 04/27/22 - 04/27/22 [facility] Discharge Disposition: Home Attending Physician: [...] Team Personnel Name: Bernice Navarrete D. Position: CNC SERVICE ENGINEER Member Role: Tamraner Support Name: Sebastian Grimaldo MD Position: Physician - Primary Care Member Role: Responsible Provider Address: Address: [address] [place] [address]- Care Team Related Persons Name: MOISES MORGAN
--- OUTSIDE RECORDS SUMMARY | 2024-02-18 13:25 | XMS_ITS | Continuity of Care Document ---
Author Organization [employer] [facility] es Address Unknown Care Team Providers Care Lawn Specialist Name Role Phone Sherlyn Weinstein Primary Care Physician Encounter 12/21/22 - [facility]21/[facility] Discharge Disposition: Home Attending Physician: Sherlyn Willson Allergies, Adverse Reactions, Alerts Substance Reaction Severity [...] Member Role: Primary Care Physician Address: Address: [address] [place] [address]- Name: Bernice Navarrete Pharm D. Position: BOARD HAMMER OPERATOR Member Role: Cerner Support Name: Pepe Pal MD Position: Physician - Women's Health Member Role: Responsible Provider Address: Address: [address] [place] [address]- Care Team Related Persons Name: MOISES MORGAN
--- OUTSIDE RECORDS SUMMARY | 2024-02-18 13:26 | XMS_ITS | Continuity of Care Document ---
Author Organization [facility] Address [address] [place] [address] Encounter 03/27/20 - 03/27/20 [facility] [address] [facility] [place] [address] Discharge Disposition: Home Attending Physician: Jamar Montesinos DPCr Admitting Physician: Jamar Montesinos DPM Referring Physician: Jamar Montesinos DPM Allergies, Adverse Reactions, Alerts Substance Reaction Severity Status amoxicillin hives Active penicillin hives Active Problem List No Known Problems Results Laboratory List Name Date SARS Coronavirus 2 RNA Detection, V (COV ID PCR MML) 03/27/20 Most recent to oldest [Reference Range]: 1 First Test No (03/27/20 12:07 PM) Employed in healthcare No (03/27/20 12:07 PM) Symptomatic as defined by CDC No (03/27/20 12:07 PM) Hospitalized No (03/27/20 12:07 PM) ICU No (03/27/20 12:07 PM) Resides in congregate care setting No (03/27/20 12:07 PM) ? Not (03/27/20 12:07 PM) Patient Race White (03/27/20 12:07 PM) Patient Ethnicity Not (03/27/20 12:07 PM) Social History Social History Type Response Smoking Status Never (less than 100 in lifetime); Smoking in Household No; Interest in Smoking Cessation Class No; Pt received Fernie Smoking Cessation [facility] Ed No entered on: 12/08/19 Sex Female
--- OUTSIDE RECORDS SUMMARY | 2024-02-18 13:26 | XMS_ITS | Continuity of Care Document ---
Author Organization [facility] es Address [address] [place] [address] Encounter 02/14/21 - 02/14/21 [facility] [address] [place] [address] Discharge Disposition: Home Attending Physician: Marisa Barrett [...] Contact with and (suspected) exposure to COVID-19 02/14/21 Non-Specified Results Laboratory List Name Date COVID PCR WH 02/14/21 Most recent to oldest [Reference Range]: 1 First Test No *NA* (02/14/21 4:37 PM) Employed in healthcare No *NA* (02/14/21 4:37 PM) Symptomatic as defined by CDC Yes *NA* (02/14/21 4:37 PM) Date of onset 11-FEB-2021 *NA* (02/14/21 4:37 PM) Hospitalized No *NA* (02/14/21 4:37 PM) ICU No *NA* (02/14/21 4:37 PM) Resides in congregate care setting No *NA* (02/14/21 4:37 PM) ? Not *NA* (02/14/21 4:37 PM) Patient Race White *NA* (02/14/21 4:37 PM) Patient Ethnicity Not *NA* (02/14/21 4:37 PM) SARCoV2 COVID Negative (02/14/21 4:37 PM) SARCoV2 IC Valid (02/14/21 4:37 PM) SARCov2 interp SARS-CoV-2 not detec oleg. (02/14/21 4:37 PM) Specimen type COVID Nasal *NA* (02/14/21 4:37 PM) Social History Social History Type Response Smoking Status Never (less than 100 in lifetime); Smoking in Household No; Interest in Smoking Cessation Class No; [facility] C[facility] Ed No entered on: 12/08/19 Sex Female
--- OUTSIDE RECORDS SUMMARY | 2024-02-18 13:26 | XMS_ITS | Continuity of Care Document ---
Author Organization [facility] Address [address] [place] [address] Encounter 06/18/20 - 06/18/20 [facility] [address] [place] [address] Encounter Diagnosis * Encounter for screening for respiratory tuberculosis(Discharge Diagnosis) - 06/18/20 Discharge Disposition: Home Attending Physician: Patsy Cardoso NP Admitting Physician: Patsy Cardoso NP Referring Physician: Patsy Cardoso SOFA COVER INSPECTOR Allergies, Adverse Reactions, Alerts Substance Reaction Severity [...] Class No; Pt received [facility]ie Smoking Cessation [facility] Ed No entered on: 12/08/19 Sex Female
--- OUTSIDE RECORDS SUMMARY | 2024-02-18 13:26 | XMS_ITS | Continuity of Care Document ---
Author Organization [facility] Address [address] [place] [address] Encounter 11/06/19 - 11/06/19 [facility] Services [address] [place] [address] Discharge Disposition: Home Social History Social History Type Response Sex Female
--- OUTSIDE RECORDS SUMMARY | 2024-02-18 13:26 | XMS_ITS | Continuity of Care Document ---
Author Organization [employer] [facility] Address Unknown Encounter 07/11/21 - 07/11/21 [facility] Services Encounter Diagnosis Acute lower urinary tract infection(Discharge Diagnosis) - 07/11/21 Discharge Disposition: Home Attending Physician: Sebastian Grimaldo MD Admitting Physician: Sebastian Grimaldo MD Referring Physician: Sebastian Grimaldo MD Allergies, Adverse Reactions, Alerts Substance Reaction Severity Status amoxicillin hives Active penicillin hives Active Assessment and Plan Extracted from: Title:Clinic Visit Author:Sebastian Grimaldo MD Da te:07/11/21 Acute lower urinary tract infection Kelly presents with about 1 day of dysuria, urgency, hesitancy. This is very familiar to her. She took Azo shortly before our visit today. This would interfere with UA. No evidence worrisome for pyelonephritis. Today, we discussed proceeding with nitrofurantoin twice daily for 5 days. Continue to push fluids. Highly encouraged voiding after intercourse for prophylaxis. Call if not improving despite this course of antibiotics. I would want a urine culture performed. Ordered: nitrofurantoin, 100 MG = 1 CAP, orally, 2 times a day, X 5 Days, # 10 CAP, Refill(s) 0, with food, Pharmacy: [facility], [place], [place], Diagnosis: Acute lower urinary tract infection, 163, 05/21/20 8:48:00 CDT, Height, cm, 64.3, 07/11/21 11:19:00 CDT, Weight, kg Functional Status 07/11/21 ADLs (func) Independent Disabilities (func) None Immunizations [...] Refill(s) 0 Start Date: 11/30/19 Status: Ordered Macrobid macrocrystals-monohydrate 100 mg oral capsule 100 MG = 1 CAP, orally, 2 times a day, X 5 Days, # 10 CAP, Refill(s) 0, with food, [facility] [place], Diagnosis: Acute lower urinary tract infection, 163, 05/21/20 8:48:00 CDT, Height, cm, 64.3, 07/11/21 11:19:00 CDT, Weight, kg Start Date: 07/11/21 Stop Date: 07/16/21 Status: Ordered Problem List No Chronic Problems Diagnosis Diagnosis Type Effective Dates Health Status Cl inical Service Informant Acute lower urinary tract infection Discharge Diagnosis 07/11/21 Non-Specified Vital Signs Most recent to oldest [Reference Range]: 1 Blood Pressure [100-150/50-95 mmHg] 109/ 69mmHg (07/11/21 11:19 AM) BP Site Right upper arm (07/11/21 11:19 AM) BP Cuff Size Large cuff (07/11/21 11:19 AM) Respiratory Rate [12-20 br/min] 20 br/mi n (07/11/21 11:19 AM) Temperature Tympanic [96-99 DegF] 98.6 D egF (07/11/21 11:19 AM) Pulse Rate [55-100 bpm] 66 bpm (07/11/21 11:19 AM) Weight 64.3 kg (07/11/21 11:19 AM) Do you have these Coronavirus symptoms? None (07/11/21 11:19 AM) Close contact w lab confirm Coronavirus No (07/11/21 11:19 AM) Have you traveled to Coronavirus area Ye s (07/11/21 11:19 AM) Where have you traveled? [place] (07/11/21 11:19 AM) Social History Social History Type Response Smoking Status Never (less than 100 in lifetime);Never; Tobacco Screening/Education Patient was screened for tobacco use and is a nonuser. entered on: 07/11/21 Sex Female
--- OUTSIDE RECORDS SUMMARY | 2024-02-18 13:26 | XMS_ITS | Continuity of Care Document ---
Author Organization [facility] es Address Unknown Care Team Providers Care Smt Technician Name Role Phone Sherlyn Weinstein Primary Care Physician En[facility]21[facility]22 [facility] Discharge Disposition: Home Attending Physician: [...] Role: Primary Care Physician Address: Address: [address] [place] [address]- Name: Bernice Navarrete Pharm D. Position: DRAFTING TECHNICIAN Member Role: Cerner Support Name: Pepe Pal MD Position: Physician - Women's Health Member Role: Responsible Provider Address: Address: [address] [place] [address]- Care Team Related Persons Name: MOISES MORGAN
--- OUTSIDE RECORDS SUMMARY | 2024-02-18 13:26 | XMS_ITS | Continuity of Care Document ---
Author Organization [facility] Address [address] [place] [address] Encounter 12/08/19 - [facility]/08/[facility] [address] [place] [address] Encounter Diagnosis Suspected,Possible,Probable,or Inconclusive COVID-19(Discharge Diagnosis) - 12/08/19 Discharge Disposition: Home Attending Physician: Jie Mcgovern Admitting Physician: Jie Mcgovern Referring Physician: Jie Mcgovern Allergies, Adverse Reactions, Alerts Substance Reaction Severity Status amoxicillin hives Active penicillin hives Active Functional Status 12/08/19 ADLs (func) Independent Disabilities (func) None Medications No Known Medications Mental Status 12/08/19 Able to Report correct day of the week C orrect Able to Report correct month Accurate wi thin 5 days Able to Report correct year Correct Problem List No Known Problems Results Laboratory List Name Date SARS Coronavirus 2 RNA Detection, V (COV ID PCR MML) 12/08/19 Most recent to oldest [Reference Range]: 1 First Test No (12/08/19 3:30 PM) Employed in healthcare No (12/08/19 3:30 PM) Symptomatic as defined by CDC Yes (12/08/19 3:30 PM) Hospitalized No (12/08/19 3:30 PM) ICU No (12/08/19 3:30 PM) Resides in congregate care setting Yes (12/08/19 3:30 PM) ? Not (12/08/19 3:30 PM) Patient Race White (12/08/19 3:30 PM) Patient Ethnicity Unknown (12/08/19 3:30 PM) Vital Signs Most recent to oldest [Reference Range]: 1 Blood Pressure [100-150/50-95 mmHg] 125/ 82mmHg (12/08/19 2:43 PM) Respiratory Rate [12-20 br/min] 16 br/mi n (12/08/19 2:43 PM) Temperature Oral [96-100 DegF] 98.7 DegF (12/08/19 2:43 PM) Pulse Rate [55-100 bpm] 75 bpm (12/08/19 2:43 PM) Oxygen Saturation [94-100 %] 100 % (12/08/19 2:43 PM) Do you have these Coronavirus symptoms? Cough (12/08/19 2:43 PM) Close contact w lab confirm Coronavirus No (12/08/19 2:43 PM) Have you traveled to Coronavirus area No (12/08/19 2:43 PM) Social History Social History Type Response Smoking Status Never (less than 100 in lifetime); Smoking in Household No; Interest in Smoking Cessation Class No; Pt received [facility] Smoking Cessation [employer] No entered on: 12/08/19 Sex Female
--- OUTSIDE RECORDS SUMMARY | 2024-02-18 13:26 | XMS_ITS | Continuity of Care Document ---
Author Organization [email or web address] [facility] es Address Unknown Care Team Providers Care Agricultural Researcher Name Role Phone Sherlyn Weinstein Primary Care Physician Encounter 09/18/22 - [facility] Discharge Disposition: Home Attending Physician: Sherlyn [...] Member Role: Primary Care Physician Address: Address: [address] [place] [address]- Name: Bernice Navarrete Pharm D. Position: AIR QUALITY MANAGER Member Role: Cerner Support Name: DORYS WU Position: Physician - Urgent Care Member Role: Responsible Provider Address: Address: [address] [place] [address]- Care Team Related Persons Name: MOISES MORGAN
--- OUTSIDE RECORDS SUMMARY | 2024-02-18 13:26 | XMS_ITS | Continuity of Care Document ---
Author Organization [facility] Address [address] [place] [address] Encounter 11/07/19 - 11/07/[facility] [address] [place] [address] Discharge Disposition: Home Attending Physician: Iona Alvarez NP Admitting Physician: Iona Alvarez NP Referring Physician: Iona Alvarez NP Results Laboratory List Name Date SARS Coronavirus 2 RNA Detection, V (COV ID PCR MML) 11/07/19 Most recent to oldest [Reference Range]: 1 First Test Yes (11/07/19 10:55 AM) Employed in healthcare No (11/07/19 10:55 AM) Symptomatic as defined by CDC No (11/07/19 10:55 AM) Hospitalized No (11/07/19 10:55 AM) ICU No (11/07/19 10:55 AM) Resides in congregate care setting Yes (11/07/19 10:55 AM) ? Not (11/07/19 10:55 AM) Patient Race White (11/07/19 10:55 AM) Patient Ethnicity Not (11/07/19 10:55 AM) Social History Social History Type Response Sex Female
--- OUTSIDE RECORDS SUMMARY | 2024-02-18 13:26 | XMS_ITS | Continuity of Care Document ---
Author Organization [employer] [facility] es Address Unknown Care Team Providers Care Core Cutter Name Role Phone Sherlyn Weinstein Primary Care Physician Encounter [facility]/07[facility]22 [facility]07[facility] Dis[facility] Disposition: Home Attending Physician: Lynn [...] Member Role: Primary Care Physician Address: Address: [address] [place] [address]- Name: Bernice Navarrete Pharm D. Position: MESS ATTENDANT CREW Member Role: Tamraner Support Name: DORYS WU Position: Physician - Urgent Care Member Role: Responsible Provider Address: Address: [address] [place] [address]- Care Team Related Persons Name: MOISES MORGAN
--- OUTSIDE RECORDS SUMMARY | 2024-02-18 13:26 | XMS_ITS | Continuity of Care Document ---
Author Organization [employer] [facility] es Address Unknown Care Team Providers Care Engraver Tire Mold Name Role Phone Sherlyn Weinstein Primary Care Physician Encounter 09/18/22 - [facility]18/[facility] Discharge Disposition: Home Attending Physician: Sherlyn [...] Member Role: Primary Care Physician Address: Address: [address] [place] [address]- Name: Bernice Navarrete Pharm D. Position: DIRECTOR OF STATE Member Role: Cerner Support Name: DORYS WU Position: Physician - Urgent Care Member Role: Responsible Provider Address: Address: [address] [place] [address]- Care Team Related Persons Name: MOISES MORGAN
--- OUTSIDE RECORDS SUMMARY | 2024-02-18 13:26 | XMS_ITS | Continuity of Care Document ---
Author Organization [facility] Address [address] [place] [address] Encounter 06/24/20 - [facility] [address] [place] [address] Encounter Diagnosis Encounter for laboratory testing for COVID-19 virus(Discharge Diagnosis) - 06/24/20 Discharge Disposition: Home Attending Physician: Jina Solis Admitting Physician: Jina Solis Referring Physician: Jina Solis Allergies, Adverse Reactions, Alerts Substance Reaction Severity [...] Status: Ordered Problem List No Known Problems Results Laboratory List Name Date COVID 19/influenza A/B RNA PCR 06/24/20 Most recent to oldest [Reference Range]: 1 Influenza A PCR [Flu A Not Detected] Flu A Not Detected (06/24/20 12:50 PM) Influenza B PCR [Flu B Not Detected] Flu B Not Detected (06/24/20 12:50 PM) First Test No *NA* (06/24/20 12:50 PM) Employed in healthcare Unknown *NA* (06/24/20 12:50 PM) Symptomatic as defined by CDC Unknown *NA* (06/24/20 12:50 PM) Hospitalized No *NA* (06/24/20 12:50 PM) ICU No *NA* (06/24/20 12:50 PM) Resides in congregate care setting No *NA* (06/24/20 12:50 PM) ? Unknown *NA* (06/24/20 12:50 PM) Patient Race Unknown *NA* (06/24/20 12:50 PM) Patient Ethnicity Unknown *NA* (06/24/20 12:50 PM) SARS-CoV-2 [Not Detected] Not Detected (06/24/20 12:50 PM) Social History Social History Type Response Smoking Status Never (less than 100 in lifetime); Smoking in Household No; Interest in Smoking Cessation Class No; Pt received [facility]ie Smoking Cessation [employer] No entered on: 12/08/19 Sex Female
== END 2024-02-21 12:52 | disposition home or self-care (01) ==
PROVIDERS: PCP Family Medicine; Visit Provider Family Medicine
DX: Z82.49 Family history of ischemic heart disease and other diseases of the circulatory system (principal)
CPT/HCPCS: 93306